=== PATIENT | male | born 2000 | race African-American/Black ===

== ENCOUNTER 2024-09-27 15:46 | Emergency (ER) | payer OTHER, SELFPAY ==
[2024-09-27 15:52] VITALS: BP 163/87; PULSE 73; RESP 17; TEMP 36.9; O2SAT 100
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
--- OUTSIDE RECORDS SUMMARY | 2024-09-27 17:24 | XMS_ITS | Clinical Summary ---
Author Organization [facility] Address [address] [place] [address] Care Team Providers Care Mold Filling Operator Name Role Phone Don Ellison MD Primary Care Provider [phone] Source Comments [facility],non-owned Affiliates and Associated Physician Practices is amultiple site organization consisting of ambulatory clinics and hospital sitesin [place], [place], [place] and [place]. This disclosure is being madepursuant to the Care Everywhere program and may not contain all information available regarding this patient. Last updated 18.[facility] Allergies Active Allergy Reactions Criticality Noted Date Comments Food 06/03/2016 Allergic to beans, causes mouth to swell Medications * Be aware that medications may not be up to date on this document. Alwaysverify current medications with the patient. No known medications Social History Tobacco Use Types Packs/Day Years Used Date Smoking Tobacco: Never Sex and Gender Information Value Date Recorded Sex Assigned at Not on file Legal Sex Male 3:58 PM TAX ACCOUNTING ASSISTANT Gender Identity Not on file Sexual Orientation Not on file Last Filed Vital Signs Vital Sign Reading Time Taken Comments Blood Pressure 140/68 08/12/2016 2:29 PM TAX ACCOUNTING ASSISTANT Pulse - - Temperature - - Respiratory Rate - - Oxygen Saturation - - Inhaled Oxygen Concentration - - Weight 110.9 kg (244 lb 7.8 oz) 08/12/2016 2:29 PM TAX ACCOUNTING ASSISTANT Height 175.4 cm (5' 9.06 ) 08/12/2016 2:29 PM CS T Body Mass Index 36.05 08/12/2016 2:29 PM TAX ACCOUNTING ASSISTANT Plan of Treatment Health Maintenance Due Date Last Done Comments HIV SCREENING 2014 HPV VACCINE (1 - Male 3-dose series) 2014 HEPATITIS C SCREENING 04/18/2017 DTAP/TDAP/TD VACCINES (1 - Tdap) 2018 HEPATITIS B VACCINE (1 of 3 - 19+ 3-dose series) 2018 COVID-19 VACCINE (1 - 2023-2 5 season) 2024 DEPRESSION SCREENING 06/12/2024 INFLUENZA VACCINE (Season Ended) 2025 ZOSTER VACCINE (1 of 2) 2049 HIB VACCINE Aged Out No longer eligi ble based on patient's age to complete this topic MENINGOCOCCAL (Group B) VACC INE SHARED DECISION-MAKING Aged Out No longer eligibl e based on patient's age to complete this topic MENINGOCOCCAL GROUPS A/C/Y/W VACCINE Aged Out No longer eligible b ased on patient's age to complete this topic PNEUMOCOCCAL VACCINE Aged Out No long er eligible based on patient's age to complete this topic Insurance [facility] Care Teams Mold Filling Operator Relationship Specialty Start Date End Date Don Ellison MD [address] [place] [address] PCP - General Pediatrics 05/03/16
--- OUTSIDE RECORDS SUMMARY | 2024-09-27 17:24 | XMS_ITS | Clinical Summary ---
Author Organization [facility] Address [address] [place] [address] Care Team Providers Care Audience Coordinator Name Role Phone No, Physician Primary Care Provider [phone] Allergies No known active allergies Medications amLODIPine (NORVASC) 5 mg tablet Take 1 tablet (5 mg total) by mouth daily 30 tablet Active Additional Information Patient not taking.Reported on 07/24/2024 Active Problems Problem Noted Date Diagnosed Date Hypertension, essential 07/24/2024 Encounters Date Type Department Care Team Description 07/24/2024 9:45 AM HOSTED SERVICES ANALYST Office Visit [facility] [address] [place] [id number] Lesley Fish NP COVID-19 (Primary Dx); Body aches; Hypertension, essential from Last 3 Months Immunizations Immunization Administration Dates Next Due DTaP 04/22/2004, 1,1999,08/24,1999 HPV, Quadrivalent 09/30/2014,03/14/2014 HPV9 04/26/2016 Hep A, Ped Unspecified 02/06/2007 Hep A, Pediatric 03/14/2014 Hep B, Adolescent or Pediatric 05/11/2000,1999,1999 HiB 09/04/2000, 0,1999,06/25 IPV 04/22/2004, 1,1999,06/25 Influenza, Quadrivalent, Spl it, Preservative Free, Intramuscular 03/14/2014 MMR 04/22/2004,09/04/2000 Meningococcal ACWY, Unspecified 03/28/2011 Meningococcal MCV4P (Menactra) 04/26/2016 Pneumococcal Conjugate 7-Valent 09/04/2000 Tdap 03/28/2011 Varicella 03/28/2011,05/11/2000 Social History Tobacco Use Types Packs/Day Years Used Date Smoking Tobacco: Never Assessed Sex and Gender Information Value Date Recorded Sex Assigned at Not on file Legal Sex Male 7:32 PM HOSTED SERVICES ANALYST Gender Identity Not on file Sexual Orientation Not on file Obstetrics History Last Filed Vital Signs Vital Sign Reading Time Taken Comments Blood Pressure 132/68 07/24/2024 9:36 AM HOSTED SERVICES ANALYST Pulse 87 07/24/2024 9:36 AM HOSTED SERVICES ANALYST Temperature 37.2 C (99 F) 07/24/2024 9:36 AM HOSTED SERVICES ANALYST Respiratory Rate 18 07/24/2024 9:36 AM HOSTED SERVICES ANALYST Oxygen Saturation 98% 07/24/2024 9:36 AM HOSTED SERVICES ANALYST Inhaled Oxygen Concentration - - Weight 105.7 kg (233 lb) 07/24/2024 9:36 AM HOSTED SERVICES ANALYST Height 177.8 cm (5' 10 ) 08/06/2021 3:04 PM HOSTED SERVICES ANALYST Body Mass Index 33.43 08/06/2021 3:04 PM HOSTED SERVICES ANALYST Plan of Treatment Health Maintenance Due Date Last Done Comments Depression Screening 1999 Hepatitis C Screening 1999 Regular Well Visit/Exam 18-64 2017 DTaP/Tdap/Td Vaccine (7 - Td or Tdap) 03/28/2021 03/28/2011, 04/22/2004, 09/04/2000, Additional history exists Influenza Vaccine (#1) 2024 03/14/2014 Hepatitis B Screening Completed 05/11/2000 , 1999, 1999 Pneumococcal vaccine <65 Aged Out 09/04/2000 No longer eligible based on patient's age to complete this topic Varicella Vaccines Completed 03/28/2011, 05/11/2000 HPV Vaccines Completed 04/26/2016, 09/11, 03/14/2014 Procedures Procedure Name Priority Date/Time Associated Diagnosis Comments POC INFLUENZA A/B, COVID-19 ANTIGEN Routine 07/24/2024 10:03 AM HOSTED SERVICES ANALYST Body aches from Last 3 Months Results * (ABNORMAL) POC Influenza A/B, COVID-19 antigen (07/24/2024 10:03 AM HOSTED SERVICES ANALYST) Influenza A Ag, POC Negative Negative [facility] Influenza B Ag, POC Negative Negative [facility] COVID-19 Ag POC Positive(A) Presumptive Negative, Invalid [facility] Nasal 07/24/2024 10:0 3 AM HOSTED SERVICES ANALYST us Lesley Fish NP POINT OF CARE TEST ORDERABLES F inal Result [facility] [address] [place] [address] from Last 3 Months Insurance [facility] Care Teams Audience Coordinator Relationship Specialty Start Date End Date No, Physician PCP - General 08/06/21
--- OUTSIDE RECORDS SUMMARY | 2024-09-27 17:24 | XMS_ITS | Referral Summary ---
Author Organization [facility] Address [address] [place] [address] Care Team Providers Care Chiropractic Practice Manager Name Role Phone No, Physician Primary Care Provider [phone] Encounters Date Type Department Care Team Description 07/24/2024 9:45 AM VP STRATEGY Office Visit [facility] [address] [address] Lesley Fish NP COVID-19 (Primary Dx); Body aches; Hypertension, essential from Last 3 Months Allergies No known active allergies Medications amLODIPine (NORVASC) 5 mg tablet Take 1 tablet (5 mg total) by mouth daily 30 tablet 2 Active Additional Information Patient not taking.Reported on 07/24/2024 Active Problems Problem Noted Date Diagnosed Date Hypertension, essential 07/24/2024 Immunizations Immunization Administration Dates Next Due DTaP [...] on file Legal Sex Male 7:32 PM VP STRATEGY Gender Identity Not on file Sexual Orientation Not on file Last Filed Vital Signs Vital Sign Reading Time Taken Comments Blood Pressure 132/68 07/24/2024 9:36 AM VP STRATEGY Pulse 87 07/24/2024 9:36 AM VP STRATEGY Temperature 37.2 C (99 F) 07/24/2024 9:36 AM VP STRATEGY Respiratory Rate 18 07/24/2024 9:36 AM VP STRATEGY Oxygen Saturation 98% 07/24/2024 9:36 AM VP STRATEGY Inhaled Oxygen Concentration - - Weight 105.7 kg (233 lb) 07/24/2024 9:36 AM VP STRATEGY Height 177.8 cm (5' 10 ) 08/06/2021 3:04 PM VP STRATEGY Body Mass Index 33.43 08/06/2021 3:04 PM VP STRATEGY Plan of Treatment Not on file Procedures Procedure Name Priority Date/Time Associated Diagnosis Comments POC INFLUENZA A/B, COVID-19 ANTIGEN Routine 07/24/2024 10:03 AM VP STRATEGY Body aches from Last 3 Months Results * (ABNORMAL) POC Influenza A/B, COVID-19 antigen (07/24/2024 10:03 AM VP STRATEGY) Influenza A Ag, POC Negative Negative [facility] Influenza B Ag, POC Negative Negative [facility] COVID-19 Ag POC Positive(A) Presumptive Negative, Invalid [facility] Nasal 07/24/2024 10:0 3 AM VP STRATEGY Lesley Fish NP POINT OF CARE TEST ORDERABLES F inal Result [facility] [address] [place] [address] from Last 3 Months Insurance [facility] Care Teams Chiropractic Practice Manager Relationship Specialty Start Date End Date No, Physician PCP - General 08/06/21
== END 2024-09-27 17:35 | disposition home or self-care (01) ==
LOC: ANHED 17:22
PROVIDERS: Emergency Provider Physician Assistant
DX: S39.012A Strain of muscle, fascia and tendon of lower back, initial encounter (principal); V49.50XA Passenger injured in collision with unspecified motor vehicles in traffic accident, initial encounter
CPT/HCPCS: 99283